=== PATIENT | female | born 1960 | race Caucasian/White ===

== ENCOUNTER 2020-01-09 09:57 | Emergency (ER) | payer OTHER, SELFPAY ==
[2020-01-09 10:07] VITALS: BP 158/91; PULSE 89; RESP 20; TEMP 36.5; O2SAT 100
[2020-01-09 10:09] VITALS: BP 158/91; PULSE 89; RESP 20; TEMP 36.5; O2SAT 100
--- NOTE | 2020-01-09 10:12 | ED.FEMALEGU ---
HPI - Female Genitourinary General Chief complaint: Urogenital-Female Stated complaint: POS UTI Time Seen by Provider: 01/09/20 10:12 Source: patient and RN notes reviewed History of Present Illness HPI Narrative: Patient is a 59-year-old female who presents the urgent care with complaints of 1 day history of a possible UTI. Patient states that she has been having dysuria and urinary frequency. Also reports of some mild suprapubic pressure before emptying the bladder. Denies of any fever, nausea, vomiting, abdominal pain, low back pain. No other acute complaints. No acute distress noted. Patient aware of the plan of care. Some parts of this dictation were generated by voice recognition software and may contain typographical and/or grammatical inaccuracies. Related Data Home Medications Medication Instructions Recorded Confirmed estradiol [Climara] 1 patch TRANSDERMAL WEEKLY 01/09/20 01/09/20 Allergies Allergy/AdvReac Type Severity Reaction Status Date / Time No Known Allergies Allergy Verified 01/09/20 10:08 Review of Systems Review of Systems: Narrative: CONSTITUTIONAL: Denies fever, chills, or sweats. EYES: Denies visual changes, redness, or discharge. ENT: Denies rhinorrhea, congestion, sore throat, or otalgia. CARDIOVASCULAR: Denies chest pain, palpitations, or edema. RESPIRATORY: Denies cough or dyspnea. GASTROINTESTINAL: Denies abdominal pain, nausea, vomiting, or diarrhea. GENITOURINARY: Reports of dysuria, intermittent bladder fullness, urinary frequency SKIN: Denies rash or itching. MUSCULOSKELETAL: Denies back pain, joint pain, or myalgia. NEUROLOGIC: Denies headache, numbness, or weakness. All other systems reviewed are negative, except as documented in HPI. PMFSH Comments At the time of my signature, I reviewed and agree with the nursing past medical, surgical, social, and family history. There is no relevant family history pertinent to the patient complaint. Exam Narrative: Exam Narrative: GENERAL: This is a well-nourished, well-developed patient, in no apparent distress. HEAD: normocephalic, atraumatic. EYES: PERRL. Sclera clear/white. Vision is grossly intact. EARS: External ears normal NOSE: External nose normal with no obvious nasal discharge, nares without redness, no rhinorrhea. THROAT: Mucous membranes moist NECK: Neck supple GASTROINTESTINAL: Abdomen soft, non-tender, nondistended. SKIN: warm, intact with no suspicious lesions or rash, good texture and turgor. NEURO: awake, alert, and oriented to person, place and time. There were no obvious focal neurologic abnormalities. EXTREMITIES: No clubbing, cyanosis, or edema. BACK: Negative bilateral CVA tenderness Course Vital Signs Vital signs: Vital Signs Temperature 97.7 F 01/09/20 10:07 Pulse Rate 89 01/09/20 10:07 Respiratory Rate 20 01/09/20 10:07 Blood Pressure 158/91 H 01/09/20 10:07 Pulse Oximetry 100 01/09/20 10:07 Temperature 97.7 F 01/09/20 10:09 Pulse Rate 89 01/09/20 10:09 Respiratory Rate 20 01/09/20 10:09 Blood Pressure 158/91 H 01/09/20 10:09 Pulse Oximetry 100 01/09/20 10:09 Reviewed-patient is informed that they may have pre-hypertension or hypertension based on a blood pressure reading in the department. I recommend the patient call the primary care provider listed on their discharge instructions or a physician of their choice this week to arrange follow-up for further evaluation of possible pre-hypertension or hypertension. MDM - Female Genitourinary MDM Narrative Medical decision making narrative: Reviewed lab results with the patient. She is aware that urine analysis was not indicative of a urinary tract infection. We will still culture the urine and call if medication is necessary. You may call the facility if you continue to be symptomatic and are worried about culture results. Give the culture approximately 2 to 3 days to result. Increase water intake and avoid sugary and caffein
== END 2020-01-09 10:29 | disposition home or self-care (01) ==
PROVIDERS: Emergency Provider Nurse Practitioner Family
DX: R30.0 Dysuria (principal)
CPT/HCPCS: 81003; 87077; 87086; 87088; 87186; 99213; G0463